=== PATIENT | male | born 1990 | race Caucasian/White ===

== ENCOUNTER → 2016-09-06 | Outpatient (CLI) | payer BC ==
--- NOTE | 2016-09-06 16:15 | US ---
EXAMINATION TYPE: US kidneys/renal and bladder DATE OF EXAM: 09/06/2016 COMPARISON: NONE CLINICAL HISTORY: N20.0 Kidney stones. Pt states flank pain, more on left/ pt states history of renal stones EXAM MEASUREMENTS: Right Kidney: 10.5 x 4.0 x 5.8 cm Left Kidney: 10.1 x 5.3 x 5.4 cm Right Kidney: wnl Left Kidney: Possible renal stones scattered throughout left kidney, largest 5mm in size, no evidence of nephrosis Bladder: wnl Bilateral Jets seen: Yes IMPRESSION: Findings are suggestive of multiple small left renal calculi with no evidence of obstruction, hydrone phrosis.
== END ==
LOC: RADUSWWP 15:44
PROVIDERS: ATTEND Family Medicine
DX: N20.0 Calculus of kidney (principal)
CPT/HCPCS: 76770